=== PATIENT | male | born 1965 | race Caucasian/White ===

== ENCOUNTER 2018-10-03 04:03 | Emergency (ER) | payer SELFPAY ==
--- NOTE | 2018-10-03 06:08 | ER ---
Nurse's Notes [facility] Name: Elbert Arevalo Age: 52 yrs Sex: Male : 1965 Arrival Date: 10/03/2018 Time: 04:05 Bed 13 Private MD: Diagnosis: Other otitis externa, right ear Presentation: 10/03 04:26 Presenting complaint: Patient states: I have had an ear ache for the past week but for jb4 the past 2 days it has gotten worse and began draining. Transition of care: patient was not received from another setting of care. Onset of symptoms was September 26, 2018. Risk Assessment: Do you want to hurt yourself or someone else? Patient reports no desire to harm self or others. Initial Sepsis Screen: Does the patient meet any 2 criteria? No. Patient's initial sepsis screen is negative. Does the patient have a suspected source of infection? No. Patient's initial sepsis screen is negative. Care prior to arrival: None. 04:26 Method Of Arrival: Ambulatory jb4 04:26 Acuity: VANESSA 4 jb4 Triage Assessment: 04:28 General: Appears in no apparent distress. comfortable, Behavior is calm, cooperative, jb4 appropriate for age. Pain: Complains of pain in right ear Pain does not radiate. Pain currently is 4 out of 10 on a pain scale. EENT: Reports pain in right ear drainage from right ear. Neuro: Level of Consciousness is awake, alert, obeys commands, Oriented to person, place, time, situation. Cardiovascular: Patient's skin is warm and dry. Respiratory: Airway is patent Respiratory effort is even, unlabored, Respiratory pattern is regular, symmetrical. GI: No deficits noted. No signs and/or symptoms were reported involving the gastrointestinal system. : No deficits noted. No signs and/or symptoms were reported regarding the genitourinary system. Derm: Skin is intact, Skin is pink, warm \T\ dry. Musculoskeletal: Circulation, motion, and sensation intact. Range of motion: intact in all extremities. Historical: - Allergies: 04:28 No Known Allergies; jb4 - Home Meds: 04:28 None [Active]; jb4 - PMHx: 04:28 None; jb4 - PSHx: 04:28 None; jb4 - Immunization history:: Adult Immunizations up to date. - Social history:: Smoking status: Patient uses tobacco products, smokes one-half pack cigarettes per day, Patient/guardian denies using alcohol. - Ebola Screening: : No symptoms or risks identified at this time. Screenin:30 Abuse screen: Denies threats or abuse. Nutritional screening: No deficits noted. jb4 Tuberculosis screening: No symptoms or risk factors identified. Fall Risk None identified. Assessment: 04:30 General: see triage assessment. jb4 05:30 Reassessment: Patient appears in no apparent distress at this time. Patient and/or jb4 family updated on plan of care and expected duration. Pain level reassessed. Patient is alert, oriented x 3, equal unlabored respirations, skin warm/dry/pink. 06:42 Reassessment: Patient appears in no apparent distress at this time. Patient and/or jb4 family updated on plan of care and expected duration. Pain level reassessed. Patient is alert, oriented x 3, equal unlabored respirations, skin warm/dry/pink. Vital Signs: 04:28 BP 155 / 84; Pulse 81; Resp 16; Temp 98.5(O); Pulse Ox 99% on R/A; Weight 127.01 kg jb4 (R); Height 6 ft. 3 in. (190.50 cm) (R); Pain 4/10; 05:45 BP 143 / 76; Pulse 65; Resp 16; Pulse Ox 94% ; jb4 04:28 Body Mass Index 35.00 (127.01 kg, 190.50 cm) jb4 ED Course: 04:05 Patient arrived in ED. ds1 04:12 Carlos Montano, RN is Primary Nurse. jb4 04:27 Triage completed. jb4 04:28 Arm band placed on right wrist. jb4 04:30 Patient has correct armband on for positive identification. Bed in low position. Call jb4 light in reach. Side rails up X 1. Pulse ox on. NIBP on. 04:35 Vinay Romero MD is Attending Physician. tw4 05:54 Grisel[facility] Dunn [facility]C [facility]. kb 05:54 Vinay Romero MD is Attending Physician. kb 06:42 No provider procedures requiring assistance completed. Patient did not have IV access jb4 during this emergency room visit. Administered Medications: No medications were administered Outcome: 06:06 Discharge ordered by . kb 06:42 Discharged to home ambulatory. jb4 06:42 Condition: stable 06:42 Discharge instructions given to patient, Instructed on discharge instructions, follow up and referral plans. medication usage, Demonstrated understanding of instructions, follow-up care, medications, Prescriptions given X 1. 06:43 Patient left the ED. jb4 Signatures: Griselda Dunn, CAREER TECHNICAL SUPERVISOR-C CAREER TECHNICAL SUPERVISOR-Nida Barnard ds1 Carlos Montano RN RN jb4 Vinay Romero MD MD tw4
--- NOTE | 2018-10-03 06:09 | EDPHYS ---
Physician Documentation [facility] Name: Elbert Arevalo Age: 52 yrs Sex: Male : 1965 Arrival Date: 10/03/2018 Time: 04:05 Bed 13 Private MD: ED Physician Vinay Romero HPI: 10/03 06:04 This 52 yrs old Male presents to ER via Ambulatory with complaints of Ear kb Pain. 06:04 The patient presents with drainage, pain. The complaints affect the right ear. Onset: kb The symptoms/episode began/occurred yesterday. Modifying factors: The symptoms are alleviated by nothing, the symptoms are aggravated by nothing. Associated signs and symptoms: The patient has no apparent associated signs or symptoms. Severity of symptoms: At their worst the symptoms were moderate in the emergency department the symptoms are unchanged. The patient has not experienced similar symptoms in the past. The patient has not recently seen a physician. Historical: - Allergies: 04:28 No Known Allergies; jb4 - Home Meds: 04:28 None [Active]; jb4 - PMHx: 04:28 None; jb4 - PSHx: 04:28 None; jb4 - Immunization history:: Adult Immunizations up to date. - Social history:: Smoking status: Patient uses tobacco products, smokes one-half pack cigarettes per day, Patient/guardian denies using alcohol. - Ebola Screening: : No symptoms or risks identified at this time. ROS: 06:04 Constitutional: Negative for fever, chills, and weight loss, Neck: Negative for injury, kb pain, and swelling, Cardiovascular: Negative for chest pain, palpitations, and edema, Respiratory: Negative for shortness of breath, cough, wheezing, and pleuritic chest pain, Abdomen/GI: Negative for abdominal pain, nausea, vomiting, diarrhea, and constipation, MS/Extremity: Negative for injury and deformity, Skin: Negative for injury, rash, and discoloration, Neuro: Negative for headache, weakness, numbness, tingling, and seizure. 06:04 ENT: Positive for drainage from ear(s), ear pain. Exam: 06:03 Constitutional: This is a well developed, well nourished patient who is awake, alert, kb and in no acute distress. Head/Face: Normocephalic, atraumatic. Neck: Trachea midline, no thyromegaly or masses palpated, and no cervical lymphadenopathy. Supple, full range of motion without nuchal rigidity, or vertebral point tenderness. No Meningismus. Chest/axilla: Normal chest wall appearance and motion. Nontender with no deformity. No lesions are appreciated. Cardiovascular: Regular rate and rhythm with a normal S1 and S2. No gallops, murmurs, or rubs. Normal PMI, no JVD. No pulse deficits. Respiratory: Lungs have equal breath sounds bilaterally, clear to auscultation and percussion. No rales, rhonchi or wheezes noted. No increased work of breathing, no retractions or nasal flaring. Abdomen/GI: Soft, non-tender, with normal bowel sounds. No distension or tympany. No guarding or rebound. No evidence of tenderness throughout. Skin: Warm, dry with normal turgor. Normal color with no rashes, no lesions, and no evidence of cellulitis. MS/ Extremity: Pulses equal, no cyanosis. Neurovascular intact. Full, normal range of motion. Neuro: Awake and alert, GCS 15, oriented to person, place, time, and situation. Cranial nerves II-XII grossly intact. Motor strength 5/5 in all extremities. Sensory grossly intact. Cerebellar exam normal. Normal gait. 06:03 ENT: External ear(s): are unremarkable, Ear canal(s): erythema, that is moderate, of the right canal, swelling, that is moderate, of the right canal, TM's: are normal, Nose: is normal, Mouth: is normal, Posterior pharynx: is normal. Vital Signs: 04:28 BP 155 / 84; Pulse 81; Resp 16; Temp 98.5(O); Pulse Ox 99% on R/A; Weight 127.01 kg jb4 (R); Height 6 ft. 3 in. (190.50 cm) (R); Pain 4/10; 05:45 BP 143 / 76; Pulse 65; Resp 16; Pulse Ox 94% ; jb4 04:28 Body Mass Index 35.00 (127.01 kg, 190.50 cm) jb4 MDM: 04:35 Patient medically screened. tw4 06:03 Data reviewed: vital signs, nurses notes. Data interpreted: Pulse oximetry: on room air kb is 99 %. Interpretation: normal. Counseling: I had a detailed discussion with the patient and/or guardian regarding: the historical points, exam findings, and any diagnostic results supporting the discharge/admit diagnosis, the need for outpatient follow up, a family practitioner, to return to the emergency department if symptoms worsen or persist or if there are any questions or concerns that arise at home. Administered Medications: No medications were administered Disposition: 10/04 01:54 Co-signature as Attending Physician, Vinay Romero MD I agree with the assessment and tw4 plan of care. Disposition: 10/03/18 06:06 Discharged to Home. Impression: Other otitis externa, right ear. - Condition is Stable. - Discharge Instructions: Otitis Externa, [id number], Ear Drops, Adult, [id number]. - Prescriptions for Cortisporin- TC 3.3-3-10-0.5 mg/mL Otic Suspension - instill 4 drop by OTIC route every 6 hours; 1 bottle. - Work release form, Medication Reconciliation Form, Thank You Letter, Antibiotic Education, Prescription Opioid Use form. - Follow up: Emergency Department; When: As needed; Reason: Worsening of condition. Follow up: Private Physician; When: 2 - 3 days; Reason: Recheck today's complaints, Continuance of care, Re-evaluation by your physician. Signatures: Griselda Dunn FNP-C FNP-Carlos Jules, RN RN jb4 Vinay Romero MD MD tw4 Corrections: (The following items were deleted from the chart) 10/03 06:43 06:06 10/03/2018 06:06 Discharged to Home. Impression: Other otitis externa, right ear. jb4 Condition is Stable. Forms are Medication Reconciliation Form, Thank You Letter, Antibiotic Education, Prescription Opioid Use. Follow up: Emergency Department; When: As needed; Reason: Worsening of condition. Follow up: Private Physician; When: 2 - 3 days; Reason: Recheck today's complaints, Continuance of care, Re-evaluation by your physician. kb
== END 2018-10-03 06:43 | disposition home or self-care (01) ==
LOC: ER 04:03
DX: H60.8X1 Other otitis externa, right ear (principal); F17.210 Nicotine dependence, cigarettes, uncomplicated
CPT/HCPCS: 99283

== ENCOUNTER 2018-10-05 08:17 | Emergency (ER) | payer SELFPAY ==
--- NOTE | 2018-10-05 08:41 | EDPHYS ---
Physician Documentation [facility] Name: Elbert Arevalo Age: 52 yrs Sex: Male : 1965 Arrival Date: 10/05/2018 Time: 08:19 Bed 19 Private MD: ED Physician Baudilio Butts HPI: 10/05 08:49 This 52 yrs old Male presents to ER via Ambulatory with complaints of Ear kb Pain. 08:49 The patient presents with pain, moderate. The complaints affect the right ear. Onset: kb The symptoms/episode began/occurred 4 day(s) ago. Modifying factors: The symptoms are alleviated by nothing, the symptoms are aggravated by nothing. Associated signs and symptoms: The patient has no apparent associated signs or symptoms. Severity of symptoms: At their worst the symptoms were moderate in the emergency department the symptoms have improved mildly. The patient has not experienced similar symptoms in the past. The patient has been recently seen at the [facility] Emergency [facility], last week. Pt was diagnosed with otitis externa of the right ear 2 days ago and started on cortisporin drops. States the pain is still there, but not as bad. Came today to have that rechecked but also c/o bleeding from left ear yesterday without pain. . Historical: - Allergies: 08:39 No Known Allergies; jl7 - Home Meds: 08:39 None [Active]; jl7 - PMHx: 08:39 None; jl7 - PSHx: 08:39 None; jl7 - Immunization history:: Adult Immunizations unknown. - Social history:: Smoking status: Patient uses tobacco products, smokes one-half pack cigarettes per day. - Ebola Screening: : No symptoms or risks identified at this time. ROS: 08:41 Constitutional: Negative for fever, chills, and weight loss, Neck: Negative for injury, kb pain, and swelling, Cardiovascular: Negative for chest pain, palpitations, and edema, Respiratory: Negative for shortness of breath, cough, wheezing, and pleuritic chest pain, Abdomen/GI: Negative for abdominal pain, nausea, vomiting, diarrhea, and constipation, Back: Negative for injury and pain, MS/Extremity: Negative for injury and deformity, Skin: Negative for injury, rash, and discoloration, Neuro: Negative for headache, weakness, numbness, tingling, and seizure. 08:41 ENT: Positive for ear pain. Exam: 08:47 Constitutional: This is a well developed, well nourished patient who is awake, alert, kb and in no acute distress. Head/Face: Normocephalic, atraumatic. Neck: Trachea midline, no thyromegaly or masses palpated, and no cervical lymphadenopathy. Supple, full range of motion without nuchal rigidity, or vertebral point tenderness. No Meningismus. Chest/axilla: Normal chest wall appearance and motion. Nontender with no deformity. No lesions are appreciated. Cardiovascular: Regular rate and rhythm with a normal S1 and S2. No gallops, murmurs, or rubs. Normal PMI, no JVD. No pulse deficits. Respiratory: Lungs have equal breath sounds bilaterally, clear to auscultation and percussion. No rales, rhonchi or wheezes noted. No increased work of breathing, no retractions or nasal flaring. Abdomen/GI: Soft, non-tender, with normal bowel sounds. No distension or tympany. No guarding or rebound. No evidence of tenderness throughout. Skin: Warm, dry with normal turgor. Normal color with no rashes, no lesions, and no evidence of cellulitis. MS/ Extremity: Pulses equal, no cyanosis. Neurovascular intact. Full, normal range of motion. Neuro: Awake and alert, GCS 15, oriented to person, place, time, and situation. Cranial nerves II-XII grossly intact. Motor strength 5/5 in all extremities. Sensory grossly intact. Cerebellar exam normal. Normal gait. 08:47 ENT: External ear(s): are unremarkable, Ear canal(s): swelling, that is minimal, of the right canal, decreased since last visit, abrasion with dried blood to left ear canal. No active bleeding, TM intact, TM's: are normal, ENT: External ear(s): are unremarkable, Ear canal(s): swelling, that is minimal, of the right canal, decreased since last visit, abrasion with dried blood to left ear canal. No active bleeding, TM intact, TM's: are normal. Vital Signs: 08:39 BP 169 / 120; Pulse 81; Resp 16 S; Pulse Ox 98% on R/A; Pain 7/10; jl7 08:41 BP 155 / 102; jl7 MDM: 08:32 Patient medically screened. [facility] 08:43 Data reviewed: vital signs, nurses notes. Data interpreted: Pulse oximetry: on room air kb is 98 %. Interpretation: normal. Counseling: I had a detailed discussion with the patient and/or guardian regarding: the historical points, exam findings, and any diagnostic results supporting the discharge/admit diagnosis, the need for outpatient follow up, an ENT specialist, to return to the emergency department if symptoms worsen or persist or if there are any questions or concerns that arise at home. Administered Medications: No medications were administered Disposition: 10/05/18 08:40 Discharged to Home. Impression: Unspecified otitis externa, right ear. - Condition is Stable. - Discharge Instructions: Otitis Externa, [id number], Ear Drops, Adult, [id number]. - Medication Reconciliation Form, Thank You Letter, Antibiotic Education, Prescription Opioid Use, Work release form form. - Follow up: Emergency Department; When: As needed; Reason: Worsening of condition. Follow up: Private Physician; When: 2 - 3 days; Reason: Recheck today's complaints, Continuance of care, Re-evaluation by your physician. Addendum: 10/06/2018 20:30 Co-signature as Attending Physician, Baudilio Butts MD I agree with the assessment and c love plan of care. Signatures: Griselda Dunn, GROUNDSKEEPING YARDMAN-C GROUNDSKEEPING YARDMAN-Ckb Baudilio Butts MD MD cha Leal, Jahala, RN RN jl7 Corrections: (The following items were deleted from the chart) 10/05 08:46 08:40 10/05/2018 08:40 Discharged to Home. Impression: Unspecified otitis externa, jl7 right ear. Condition is Stable. Forms are Medication Reconciliation Form, Thank You Letter, Antibiotic Education, Prescription Opioid Use. Follow up: Emergency Department; When: As needed; Reason: Worsening of condition. Follow up: Private Physician; When: 2 - 3 days; Reason: Recheck today's complaints, Continuance of care, Re-evaluation by your physician. kb
--- NOTE | 2018-10-05 08:41 | ER ---
Nurse's Notes [facility] Name: Elbert Arevalo Age: 52 yrs Sex: Male : 1965 Arrival Date: 10/05/2018 Time: 08:19 Bed 19 Private MD: Diagnosis: Unspecified otitis externa, right ear Presentation: 10/05 08:37 Presenting complaint: Patient states: Right ear ache x 1 week, left ear bleeding jl7 yesterday. Transition of care: patient was not received from another setting of care. Onset of symptoms was September 30, 2018. Risk Assessment: Do you want to hurt yourself or someone else? Patient reports no desire to harm self or others. Initial Sepsis Screen: Does the patient meet any 2 criteria? No. Patient's initial sepsis screen is negative. Does the patient have a suspected source of infection? No. Patient's initial sepsis screen is negative. Care prior to arrival: None. 08:37 Method Of Arrival: Ambulatory jl7 08:37 Acuity: VANESSA 4 jl7 Historical: - Allergies: 08:39 No Known Allergies; jl7 - Home Meds: 08:39 None [Active]; jl7 - PMHx: 08:39 None; jl7 - PSHx: 08:39 None; jl7 - Immunization history:: Adult Immunizations unknown. - Social history:: Smoking status: Patient uses tobacco products, smokes one-half pack cigarettes per day. - Ebola Screening: : No symptoms or risks identified at this time. Screenin:30 Abuse screen: Denies threats or abuse. Denies injuries from another. Nutritional jl7 screening: No deficits noted. Tuberculosis screening: No symptoms or risk factors identified. Fall Risk None identified. Assessment: 08:30 General: Appears in no apparent distress. uncomfortable. Pain: Complains of pain in jl7 right ear Pain does not radiate. Pain currently is 7 out of 10 on a pain scale. Neuro: Level of Consciousness is awake, alert, obeys commands, Oriented to person, place, time, situation. Cardiovascular: Patient's skin is warm and dry. Respiratory: Airway is patent Respiratory effort is even, unlabored, Respiratory pattern is regular, symmetrical. EENT: Reports pain in right ear. Derm: Skin is. Vital Signs: 08:39 BP 169 / 120; Pulse 81; Resp 16 S; Pulse Ox 98% on R/A; Pain 7/10; jl7 08:41 BP 155 / 102; jl7 ED Course: 08:19 Patient arrived in ED. mr 08:22 Griselda Dunn FNP-C is [facility]. kb 08:22 Baudilio Butts MD is Attending Physician. kb 08:30 Safety checks: Items removed: yes. Door open/sign placed on door: yes. Family/friend [facility] present: yes. Family/friends encouraged to stay with patient. Sitter present: Yes. 08:30 Patient has correct armband on for positive identification. Bed in low position. Call jl7 light in reach. Side rails up X 1. 08:30 No provider procedures requiring assistance completed. Patient did not have IV access jl7 during this emergency room visit. 08:31 Gregory Mathis, RN is Primary Nurse. jl7 08:38 Triage completed. jl7 08:39 Arm band placed on right wrist. jl7 Administered Medications: No medications were administered Outcome: 08:40 Discharge ordered by MD. kb 08:45 Discharged to home ambulatory. jl7 08:45 Condition: stable 08:45 Discharge instructions given to patient, Instructed on discharge instructions, follow up and referral plans. Demonstrated understanding of instructions, follow-up care. 08:46 Patient left the ED. jl7 Signatures: Griselda Dunn FNP-C LINE WORKER-Billy Rachele Bazan [facility] Gregory Mathis, RN RN jl7 Corrections: (The following items were deleted from the chart) :33 09:30 General: Appears in no apparent distress. uncomfortable, jl7 jl7 :33 09:30 Pain: Complains of pain in right ear Pain does not radiate. Pain currently is 7 jl7 out of 10 on a pain scale. jl7 : 09:30 Neuro: Level of Consciousness is awake, alert, obeys commands, Oriented to jl7 person, place, time, situation, jl7 : 09:30 Cardiovascular: Patient's skin is warm and dry. jl7 jl7 : 09:30 Respiratory: Airway is patent Respiratory effort is even, unlabored, Respiratory jl7 pattern is regular, symmetrical, jl7 : 09:30 EENT: Reports pain in right ear jl7 jl7 09:33 09:30 Derm: Skin is jl7 jl7
== END 2018-10-05 08:46 | disposition home or self-care (01) ==
LOC: ER 08:17
DX: H60.91 Unspecified otitis externa, right ear (principal); F17.210 Nicotine dependence, cigarettes, uncomplicated
CPT/HCPCS: 99281